=== PATIENT | female | born 1955 | race Caucasian/White ===

== ENCOUNTER 2020-06-09 12:49 | Emergency (ER) | payer MEDICAID ==
[~2020-06-09] VITALS: Ht 154.9 cm; Wt 54.0 kg
[2020-06-09] MEDS ORDERED: IBUPROFEN 600MG TABLET PO ONE (15:45)
[2020-06-09 15:50] VITALS: BP 132/64
== END 2020-06-09 16:30 | disposition home or self-care (01) ==
LOC: ER 12:49
DX: M25.572 Pain in left ankle and joints of left foot (principal); F17.200 Nicotine dependence, unspecified, uncomplicated
CPT/HCPCS: 73590; 73610; 73630; 99284; Z7610

== ENCOUNTER 2020-06-18 09:22 | Emergency (ER) | payer MEDICAID ==
[~2020-06-18] VITALS: Ht 152.4 cm; Wt 51.0 kg
[2020-06-18 09:27] VITALS: BP 127/107
== END 2020-06-18 10:36 | disposition home or self-care (01) ==
LOC: ER 09:34
DX: S80.12XA Contusion of left lower leg, initial encounter (principal); X58.XXXA Exposure to other specified factors, initial encounter; Y93.89 Activity, other specified; Y92.89 Other specified places as the place of occurrence of the external cause; Y99.8 Other external cause status
CPT/HCPCS: 73590; 73610; 73630; 99284